=== PATIENT | male | born 1975 | race Caucasian/White ===

== ENCOUNTER 2020-10-16 05:55 | Emergency (ER) | payer OTHER ==
[~2020-10-16 05:55] MED LIST: FLEXERIL10 MG PO; MEDROL 4MG DOSEP4 MG PO
[2020-10-16] MEDS ORDERED: PERCOCET 5-3251 EACH PO (07:25)
[2020-10-16] MEDS ORDERED: IBUPROFEN800 MG PO (07:25)
[2020-10-16] MEDS ORDERED: CYCLOBENZAPRINE10 MG PO (07:25)
[2020-10-16] MEDS ORDERED: MEDROL 4MG DOSEP4 MG PO (07:25)
== END 2020-10-16 07:49 | disposition home or self-care (01) ==
LOC: FER 05:55
DX: G89.29 Other chronic pain (principal); M54.5 Low back pain; I10 Essential (primary) hypertension; E03.9 Hypothyroidism, unspecified; K21.9 Gastro-esophageal reflux disease without esophagitis; Z79.899 Other long term (current) drug therapy
CPT/HCPCS: 96372; 99283; J1100; J1170; J1885

== ENCOUNTER 2021-09-04 22:46 | Emergency (ER) | payer OTHER ==
[~2021-09-04 22:46] MED LIST changes: +CYCLOBENZAPRINE10 MG PO; +IBUPROFEN800 MG PO; +PERCOCET 5-3251 EACH PO
[2021-09-04 23:17] LABS: BASOPHIL 0.5 % (0-2); EOSINOPHIL 0.9 % (0-5); HCT 40.8 % (42.0-52.0); HGB 13.7 g/dl (13.2-18.0); LYMPHOCYTE 30.7 % (15-48); MCH 29.5 pg (25.0-31.0); MCHC 33.6 g/dL (32.0-36.0); MCV 87.9 fL (78.0-100.0); MONOCYTE 9.7 % (0-12); MPV 11.1 fL (6.0-9.5); NEUTROPHIL 57.9 % (41-80); NRBC 0; PLT 167 K/uL (150-400); RBC 4.64 M/uL (4.70-6.00); RDW 12.8 % (11.5-14.0); WBC 7.7 K/uL (4.0-10.5)
[2021-09-04 23:36] LABS: ALBUMIN 3.6 g/dL (3.4-5.0); BILIRUBIN - TOTAL 0.9 mg/dL (0.2-1.0); BUN/CREAT RATIO (CALC) 19.8 RATIO; CREATININE 1.31 mg/dL (0.67-1.17); GLOBULIN (CALCULATION) 3.1 g/dL; POTASSIUM 3.7 mmol/L (3.5-5.1); TOTAL PROTEIN 6.7 g/dL (6.4-8.2)
[2021-09-04 23:53] LABS: CORONAVIRUS 2019 SARS-COV-2 NEGATIVE (NEGATIVE); INFLUENZA A NAA NEGATIVE (NEGATIVE)
[2021-09-05] MEDS ORDERED: ATIVAN1 MG PO (01:40)
[2021-09-05] MEDS ORDERED: COMPAZINE10 MG PO (01:40)
== END 2021-09-05 02:19 | disposition home or self-care (01) ==
LOC: FER 22:46
PROVIDERS: Internal Medicine
DX: R11.0 Nausea (principal); T45.1X5A Adverse effect of antineoplastic and immunosuppressive drugs, initial encounter; N17.9 Acute kidney failure, unspecified; I10 Essential (primary) hypertension; Z79.899 Other long term (current) drug therapy; Z20.822 Contact with and (suspected) exposure to COVID-19; Z28.310 Unvaccinated for COVID-19
CPT/HCPCS: 36415; 80053; 83690; 84145; 85025; J0780; J1630; J2060; J2550; J7120; U0002

== ENCOUNTER 2021-09-06 10:58 | Emergency (ER) | payer OTHER ==
[~2021-09-06 10:58] MED LIST changes: +ATIVAN1 MG PO; +COMPAZINE10 MG PO
== END 2021-09-06 14:20 | disposition left against medical advice (07) ==
LOC: FER 10:58
DX: E86.0 Dehydration (principal); I10 Essential (primary) hypertension; Z53.29 Procedure and treatment not carried out because of patient's decision for other reasons; Z28.310 Unvaccinated for COVID-19
CPT/HCPCS: 99283

== ENCOUNTER 2021-09-24 08:59 | Emergency (ER) | payer OTHER ==
[2021-09-24 11:10] LABS: BASOPHIL 0.7 % (0-2); EOSINOPHIL 2.9 % (0-5); HCT 38.9 % (42.0-52.0); LYMPHOCYTE 1.4 % (15-48); MCH 29.7 pg (25.0-31.0); MCHC 33.4 g/dL (32.0-36.0); MCV 88.8 fL (78.0-100.0); MONOCYTE 9.6 % (0-12); MPV 10.3 fL (6.0-9.5); NEUTROPHIL 84.9 % (41-80); NRBC 0; PLT 145 K/uL (150-400); RBC 4.38 M/uL (4.70-6.00); RDW 13.2 % (11.5-14.0); WBC 5.9 K/uL (4.0-10.5)
[2021-09-24 11:17] LABS: ALBUMIN 3.7 g/dL (3.4-5.0); BILIRUBIN - TOTAL 0.6 mg/dL (0.2-1.0); BUN/CREAT RATIO (CALC) 16.3 RATIO; CREATININE 2.03 mg/dL (0.67-1.17); GLOBULIN (CALCULATION) 3.4 g/dL; TOTAL PROTEIN 7.1 g/dL (6.4-8.2)
[2021-09-24 11:29] LABS: LACTIC ACID 2.1 mmol/L (0.4-1.9)
[2021-09-24 12:37] LABS: BILIRUBIN NEGATIVE (NEGATIVE); BLOOD NEGATIVE Ery/uL (NEGATIVE); CLARITY HAZY (CLEAR); COLOR YELLOW (YELLOW); GLUCOSE (U) NORMAL (NORMAL); LEUKOCYTES NEGATIVE Leu/uL (NEGATIVE); NITRITE NEGATIVE (NEGATIVE); PROTEIN 1+ mg/dL (NEGATIVE); SPECIFIC GRAVITY >=1.030 (1.001-1.030); UROBILINOGEN 0.2 mg/dL (0.2-1.0); pH 5.5 (5.0-9.0)
[2021-09-24 12:48] LABS: BACTERIA TRACE; MUCOUS TRACE; URINARY RBC RARE
[2021-09-24 13:50] LABS: BASOPHIL 0.6 % (0-2); EOSINOPHIL 4.8 % (0-5); HCT 36.4 % (42.0-52.0); HGB 12.2 g/dl (13.2-18.0); LYMPHOCYTE 1.8 % (15-48); MCH 29.9 pg (25.0-31.0); MCHC 33.5 g/dL (32.0-36.0); MCV 89.2 fL (78.0-100.0); MONOCYTE 7.5 % (0-12); MPV 10.3 fL (6.0-9.5); NEUTROPHIL 84.7 % (41-80); NRBC 0; PLT 140 K/uL (150-400); RBC 4.08 M/uL (4.70-6.00); RDW 13.2 % (11.5-14.0); WBC 5.5 K/uL (4.0-10.5)
[2021-09-24 13:56] LABS: BUN/CREAT RATIO (CALC) 15.7 RATIO; CREATININE 2.17 mg/dL (0.67-1.17)
== END 2021-09-24 15:48 | disposition home or self-care (01) ==
LOC: FER 08:59
PROVIDERS: Emergency Medicine
DX: E86.0 Dehydration (principal); R52 Pain, unspecified; Z28.310 Unvaccinated for COVID-19
CPT/HCPCS: 36415; 71045; 80048; 80053; 81001; 83605; 83690; 84145; 85025; 87040; 87088; J2405; J7030